=== PATIENT | female | born 1995 | race Caucasian/White ===

== ENCOUNTER 2018-01-23 06:26 | Emergency (ER) | payer OTHER ==
[~2018-01-23] VITALS: Ht 165.1 cm; Wt 72.6 kg
[2018-01-23 06:33] VITALS: Ht 165.1 cm; Wt 72.6 kg
[2018-01-23 09:23] VITALS: BP 107/89
== END 2018-01-23 09:23 | disposition home or self-care (01) ==
LOC: ED 06:26
DX: S43.102A Unspecified dislocation of left acromioclavicular joint, initial encounter (principal); V49.88XA Car occupant (driver) (passenger) injured in other specified transport accidents, initial encounter; Y93.I9 Activity, other involving external motion; Y92.413 State road as the place of occurrence of the external cause; Y99.8 Other external cause status
CPT/HCPCS: J1885; J3010